=== PATIENT | male | born 1985 | race Caucasian/White ===

== ENCOUNTER → 2017-01-10 | Outpatient (CLI) | payer BC ==
[~2017-01-10] MED LIST: ACYC-223 PO; DRV100 PO; OXYC-57 PO
--- NOTE | 2017-01-10 16:31 | DIAGNOSTIC IMAGING REPORT ---
LEFT THIRD FINGER RADIOGRAPHS CLINICAL HISTORY: Decreased range of motion and middle finger swelling following injury. COMPARISON: None. FINDINGS: Alignment of left third finger is anatomic. There is moderate soft tissue swelling at the level of the proximal interphalangeal joint. No acute fracture is identified. IMPRESSION: 1. No acute fracture or dislocation of the left third finger. 2. Moderate soft tissue swelling at the level of the left third digit PIP joint. Electronically signed by: Zeke Rodriguez M.D. 01/10/2017 4:30 PM Dictated Date/Time: 01/10/2017 4:25 PM
== END | disposition home or self-care (01) ==
LOC: C.RAD1850 16:10
PROVIDERS: ATTEND Nurse Practitioner Family
DX: M79.89 Other specified soft tissue disorders (principal); M25.642 Stiffness of left hand, not elsewhere classified; W50.0XXA Accidental hit or strike by another person, initial encounter

== ENCOUNTER → 2017-03-29 | Outpatient (CLI) | payer BC, OTHER | END | disposition home or self-care (01) | LOC: C.RDSM 08:30 | PROVIDERS: ATTEND Family Medicine Sports Medicine | DX: M25.561 Pain in right knee (principal) ==